=== PATIENT | female | born 1975 | race Caucasian/White ===

== ENCOUNTER 2019-03-01 08:20 | Day surgery (SDC) | payer OTHER ==
[2019-03-01] VITALS (11 sets, daily range): BP systolic 100–120; BP diastolic 63–86; PULSE 53–92; TEMP 97.7
[~2019-03-01] VITALS: Ht 162.6 cm; Wt 67.0 kg
[2019-03-01] MEDS ORDERED: MOTRIN 200200 MG/TAB PO (09:16)
[2019-03-01 09:24] LABS: HEMOGLOBIN 12.5 g/dl (12.5-16.0); MEAN CELL VOLUME 91 fl (80.0-100.0); MEAN CORPUSCULAR HEMOGLOBIN 31 pg (27.0-31.0); MEAN CORPUSCULAR HGB CONC 34 g/dl (33.0-37.0); MEAN PLATELET VOLUME 9.2 fl (7.4-10.4); PLATELET COUNT 207 K/mm3 (130-400); RED BLOOD COUNT 4.09 M/mm3 (4.10-5.30); REDCELL DISTRIBUTION WIDTH-CV 12.5 % (11.5-14.5)
[2019-03-01 09:33] LABS: INR 1.1 (0.8-3.0); PROTHROMBIN TIME 12.7 SECONDS (9.7-12.8)
[2019-03-01 09:35] LABS: PARTIAL THROMBOPLASTIN TIME 37.4 SECONDS (26.0-37.0)
[2019-03-01 09:36] LABS: CALCIUM 9.1 mg/dL (8.4-10.2); CREATININE, serum 0.63 (0.52-1.25); POTASSIUM 4.3 mmol/L (3.4-5.0)
--- NOTE | 2019-03-01 13:15 | NUR ---
pT TO PROCEDURE
--- NOTE | 2019-03-01 13:35 | NUR ---
ALL MEDICATIONS GIVEN VORB WITH MD. SEE MERGE FOR ALL MEDICATION ADMIN TIMES. SEE MERGE FOR ALL RASS ASSESSMENTS DURING AND POST PROCEDURE. POSITIVE BARBEAU'S TEST IN THE RIGHT WRIST, RADIAL PULSE +2.
--- NOTE | 2019-03-01 15:20 | NUR ---
Patient transported back to room 9 at this time. Patient alert and oriented, denies any pain at this time. VS stable. Patient hooked up to monitoring equipment. Bedside report given to Zarina at this time. Visualized right IJ site with RN. Dressing clean and dry, reinforced with another tegaderm. Right radial site visualized with RN. TR band remains in place with 13 cc of air in the band. No oozing or hematoma noted at this time, site around TR band soft and nontender. Cap refill <3 seconds, no numbness or tingling per patient. Discussed importance of wrist restrictions with patient, verbalized understanding. Bed in locked and lowest position, call light within reach.
--- NOTE | 2019-03-01 17:12 | NUR ---
3ml of air released from band,bleeding observed at site,3 ml air reinflated back into band.
--- NOTE | 2019-03-01 19:09 | NUR ---
Discharge insstructions given to pt.pt verbalizes understanding.INT removed,cathter tip intact.Dressings to right neck and right wrist observved clean,dry,and intact.
== END 2019-03-01 19:09 | disposition home health service (06) ==
LOC: COL.CAR 08:20
PROVIDERS: Internal Medicine Cardiovascular Disease
DX: I42.1 Obstructive hypertrophic cardiomyopathy (principal); F41.9 Anxiety disorder, unspecified; I34.0 Nonrheumatic mitral (valve) insufficiency; Z87.891 Personal history of nicotine dependence
CPT/HCPCS: J1644; J2250; J3010; Q9967

== ENCOUNTER → 2020-02-10 | Outpatient (CLI) | payer BC ==
[~2020-02-10] MED LIST: MOTRIN 200200 MG/TAB PO
== END ==
LOC: MC.RAD 08:36
DX: Z12.31 Encounter for screening mammogram for malignant neoplasm of breast (principal)

== ENCOUNTER → 2021-03-02 | Outpatient (CLI) | payer BC | LOC: MC.RAD 08:55 | DX: Z12.31 Encounter for screening mammogram for malignant neoplasm of breast (principal) ==